=== PATIENT | male | born 1960 | race African-American/Black ===

== ENCOUNTER 2017-08-30 20:29 | Emergency (ER) | payer OTHER ==
--- NOTE | 2017-08-30 22:51 | ULT ---
RIGHT UPPER EXTREMITY VENOUS ULTRASOUND 08/30/17 HISTORY: Right upper extremity edema for seven days and elevated D-dimer. History of cancer. TECHNIQUE: Multiplanar warren scale and color doppler images were obtained in a right upper extremity venous ultra sound. Spectral analysis of the doppler waveforms were performed. FINDINGS: The right internal jugular vein demonstrates normal compression and flow without evidence of thrombus . The right subclavian vein has echogenic material within it. Flow is stil seen within the right sub clavian vein but there is likely partially occlusive thrombus in the proximal and mid portion of the subclavian vein. The axillary and brachial veins demonstrate a normal compression, flow and augmentat ion without evidence of thrombus. the right basilic and cephalic veins are patent without evidence of thrombus. IMPRESSION: There appears to be a partially occlusive thrombus in the right subclavian vein. POS: [facility]
[2017-08-30] MEDS ORDERED: Rivaroxaban 15 MG TAB PO SCH (23:30)
== END 2017-08-31 00:03 | disposition home or self-care (01) ==
LOC: ERS 20:29
DX: I82.621 Acute embolism and thrombosis of deep veins of right upper extremity (principal); F17.200 Nicotine dependence, unspecified, uncomplicated
CPT/HCPCS: J1642

== ENCOUNTER 2018-08-18 15:17 | Emergency (ER) | payer OTHER ==
--- NOTE | 2018-08-18 17:35 | ULT ---
FExam: Testicular ultrasound HISTORY: Right testicular pain COMPARISON: None TECHNIQUE: Sagittal and transverse imaging of the left and right hemiscrotum are performed. Testicula r Doppler is performed with grayscale, color-flow, Doppler imaging and spectral waveform analysis. FINDINGS: Right hemiscrotum: Testicle: Homogeneous echotexture. No intratesticular masses. Right testicle measurements: 3.3 x 4.0 x 2.4 cm Right epididymis: Normal echotexture. Right epididymis measurements: 1.2 x 0.8 x 0.6 cm Hydrocele: None Left hemiscrotum: Left testicle: Homogeneous echotexture. No intratesticular masses. Left testicle measurements: 3.8 x 2.1 x 3.2 cm Left epididymis: Normal echotexture. Left epididymis measurements:0.8 x 0.5 x 0.8 cm Hydrocele: None Testicular Doppler: There is symmetric vascular flow to the left and right testicle. . IMPRESSION: Unremarkable testicular ultrasound
== END 2018-08-18 18:34 | disposition home or self-care (01) ==
LOC: ERS 15:17
DX: N50.811 Right testicular pain (principal); R10.9 Unspecified abdominal pain; F17.210 Nicotine dependence, cigarettes, uncomplicated
CPT/HCPCS: 76870; 93976